=== PATIENT | male | born 1970 | race Caucasian/White ===

== ENCOUNTER 2020-01-26 09:40 | Outpatient (CLI) | payer OTHER, SELFPAY ==
--- NOTE | 2020-01-26 09:50 | XRR_ITS ---
PROCEDURE INFORMATION: Exam: XR Left Foot Complete Exam date and time: 01/26/2020 10:09 AM Age: 49 years old Clinical indication: Injury or trauma; Injury history: Cow stepped on left great toe 1-2 month ago; Initial encounter; Blunt trauma; Toes; Injury date: 1-2 months ago; Additional info: Left toe pain (attn: L great toe) TECHNIQUE: Imaging protocol: XR Left foot. Views: 3 or more views. COMPARISON: No relevant prior studies available. FINDINGS: Bones/joints: Subtle findings suggestive of healing nondisplaced fracture involving the left 1st distal phalanx. Soft tissues: Soft tissue swelling in the great toe. XR/XR foot LT min 3V* [id number] IMPRESSION: Subtle findings suggestive of healing nondisplaced fracture involving the left 1st distal phalanx.
== END 2020-01-26 09:41 | disposition home or self-care (01) ==
LOC: RAD 09:44
PROVIDERS: PCP Family Medicine; Visit Provider Family Medicine
DX: M79.675 Pain in left toe(s) (principal)
CPT/HCPCS: 73630

== ENCOUNTER 2021-11-06 09:22 | Day surgery (SDC) | payer OTHER, SELFPAY ==
[2021-11-04 09:21] VITALS: BMI 29.2
--- NOTE | 2021-11-06 09:29 | W.PM.OPSFHP ---
Same Day Surgery H&P Indication for Procedure/HPI DATE OF PROCEDURE: November 06, 2021 CHIEF COMPLAINT/INDICATIONFOR SURGICAL PROCEDURE: Screening colonoscopy PREOP DIAGNOSIS: Screening colonoscopy PLANNED PROCEDURE: Operation Date: 11/06/21 10:30 Proposed Procedures p Colonoscopy 83022/[id number](Not Applicable) - Costa Nguyen MD This is a pleasant 51 years old gentleman presented to my practice for screening colonoscopy. Patient denies history of colon cancer or bleeding per rectum or weight loss. ROS All systems have been all systems have been reviewed negative except as per the above or per problem list Medications/Allergies* Home Medications Medication Instructions Recorded Confirmed Type simvastatin 10 mg tablet 10 mg PO DAILY 02/22/20 11/04/21 History Allergies/Adverse Reactions Allergy/AdvReac Type Severity Reaction Status Date / Time No Known Allergies Allergy Verified 11/06/21 09:31 Pertinent History/Comorbid Conditions* Family History (Updated 02/22/20 @ 14:14 by Michell Khan LPN) CAD (coronary artery disease) Dementia Family history of premature coronary artery disease Denies family history of Diabetes Clotting disorder Hyperlipidemia Psychiatric illness Chronic kidney disease (CKD) Suicide Anesthesia complication Bleeding disorder Lung disease Cancer Hypertension Stroke Social History Smoking and tobacco status: never smoked Alcohol intake: current Adopted: No Household members: spouse Marital status: Pertinent Exam Findings alert, oriented x 3, clear to auscultation bilaterally, regular rate & rhythm and procedure specific exam findings Recommendations Surgery/Procedure today (Screening colonoscopy ) Other Plans: Plan of care; After thorough history and physical examination and reviewing the chart, plan to perform screening colonoscopy. I discussed with the patient in details the risks,benefits,alternatives and indications.The risk of aspiration, bleeding, soft tissue injury, perforation of the colon and other potential concomitant complications were explained to the patient in details,also the potential need for Laproscoy/Laparotomy to repair any related complications including but not limited to colectomy and or Closotomy.The patient understood this well and did agree to proceed. Rationale was carefully and clearly discussed with the patient.Appropriate informed consent have been reviewed and signed All questions have been answered and all concerns have been addressed to patient's satisfaction. Verbal and written Instructions were given to the patient for colonoscopy prep Coding Level of Care Code Acute Line Maintenance Technician for Marlene Vazquez
[2021-11-06 09:40] VITALS: BP 137/94; PULSE 70; RESP 17; TEMP 36.6; O2SAT 97
[2021-11-06] MEDS: sodium chloride 0.9% 1,000 ML 30 ML IV (09:46)
--- NOTE | 2021-11-06 10:30 | ANES.PREANE2 ---
Pre-Anesthetic Assessment Height/Weight: Height 1.75 m Weight 89.811 kg Temp Pulse Resp BP Pulse Ox 98 F 70 17 137/94 97 11/06/21 09:40 11/06/21 09:40 11/06/21 09:40 11/06/21 09:40 11/06/21 09:40 Preop Diagnosis: screening colonoscopy Operation Date: 11/06/21 10:30 Proposed Procedures p Colonoscopy 48751/[id number](Not Applicable) - Costa Nguyen MD Familial anesthetic complications: None Was Beta Mirlande taken within 24 hours: N/A Was Clonidine taken within 24 hours: N/A Last intake: Intake Last Liquid Date 11/05/21 Last Liquid Time 20:00 Last Solid Date 11/04/21 Last Solid Time 17:30 Social No alcohol and No tobacco Exam alert, oriented x 3, clear to auscultation bilaterally and regular rate & rhythm Airway Submandibular: within normal limits Cervical ROM: within normal limits Mallampati: Class II Dentition: full Metabolic Hyperlipidemia Anesthetic Plan ASA status: 2 Anesthesia: MAC Medications/Allergies Home Medications Medication Instructions Recorded Confirmed Last Taken Type simvastatin 10 mg tablet 10 mg PO DAILY 02/22/20 11/06/21 11/05/21 History Allergies Allergy/AdvReac Type Severity Reaction Status Date / Time No Known Allergies Allergy Verified 11/06/21 09:31 Current Medications Generic Name Dose Route Start Last Admin Trade Name Freq PRN Reason Stop Dose Admin Sodium Chloride 1,000 mls @ 30 mls/hr 11/06/21 09:30 11/06/21 09:46 Sodium Chloride 0.9% IV 11/07/21 09:29 30 mls/hr .Q24H SONA Administration PFSH Anesthesia Family History Other CAD (coronary artery disease) Dementia Family history of premature coronary artery disease Denies family history of Diabetes Clotting disorder Hyperlipidemia Psychiatric illness Chronic kidney disease (CKD) Suicide Anesthesia complication Bleeding disorder Lung disease Cancer Hypertension Stroke Social History Smoking and tobacco status: never smoked Alcohol intake: current Adopted: No Household members: spouse Marital status: Data Anesthesia Cardiac Studies: No Data to Display
[2021-11-06 10:52] VITALS: BP 118/75; PULSE 80; RESP 18; TEMP 36.6; O2SAT 95
[2021-11-06 11:00] VITALS: BP 112/93; PULSE 72; RESP 18; TEMP 36.7; O2SAT 94
--- NOTE | 2021-11-06 14:52 | ANE.PACU2 ---
Inpatient post-anesthesia follow up: Airway intact: Yes Vital signs: Temperature 98.1 F Pulse Rate 72 Respiratory Rate 18 Blood Pressure 112/93 Pulse Oximetry 94 Oxygen Delivery Me thod Room Air Oxygen Flow Rate Fraction of Inspir ed Oxygen Hydration adequate: Yes Nausea and vomiting: No Pain level: 1 Mental status: Baseline
== END 2021-11-06 11:18 | disposition home or self-care (01) ==
PROVIDERS: PCP Family Medicine; Visit Provider Surgery
PROC: 0DJD8ZZ Inspection of Lower Intestinal Tract, Via Natural or Artificial Opening Endoscopic (ICD-10-PCS; CPT 45378; principal; 2021-11-06 10:30)
DX: Z12.11 Encounter for screening for malignant neoplasm of colon (principal); Z82.49 Family history of ischemic heart disease and other diseases of the circulatory system
CPT/HCPCS: 45378; J2250; J2704; J7030